=== PATIENT | male | born 1995 | race Caucasian/White ===

== ENCOUNTER 2017-11-26 11:43 | Emergency (ER) | payer OTHER ==
[2017-11-26] MEDS: KETOROLAC 30 MG INJ IV (13:20)
[2017-11-26] MEDS: SOD CHLORIDE 0.9% 1,000 ML IV (13:20)
[2017-11-26 13:42] LABS: ADD MAN DIFF? NO
[2017-11-26 13:46] LABS: BASOPHILS % 0.1 % (0.0-2.0); EOSINOPHILS % 0.1 % (0.0-7.0); HEMATOCRIT 40.5 % (42.0-52.0); HEMOGLOBIN 14.3 g/dl (14.0-18.0); LYMPHOCYTES # 1.5 10^3/ul (0.8-2.9); LYMPHOCYTES % 17.4 % (15.0-51.0); MEAN CORPUSCULAR HGB CONC 35.3 g/dl (32.0-37.0); MEAN CORPUSCULAR VOLUME 82.2 fl (82.0-101.0); MEAN PLATELET VOLUME 10.4 fl (7.4-10.4); MONOCYTE # 0.6 10^3/ul (0.3-0.9); MONOCYTES % 7.3 % (0.0-11.0); NEUTROPHIL # 6.3 10^3/ul (1.6-7.5); NEUTROPHILS % 74.6 % (39.0-77.0); PLATELET COUNT 182 10^3/UL (140-415); RED BLOOD COUNT 4.93 10^6/ul (4.70-6.10); RED CELL DISTRIBUTION WIDTH 12.1 % (11.5-14.5)
[2017-11-26 13:46] LABS: WHITE BLOOD COUNT 8.5 10^3/ul (4.8-10.8)
[2017-11-26] MEDS: CEFTRIAXONE 1 GM/50 ML (PMX) 50 ML IVPB (14:32)
== END 2017-11-26 15:17 | disposition home or self-care (01) ==
LOC: FTE 15:17
DX: J18.9 Pneumonia, unspecified organism (principal)
CPT/HCPCS: 71045; 85025; 96374; 96375; 99284-25